=== PATIENT | female | born 1970 | race Caucasian/White ===

== ENCOUNTER → 2018-06-01 12:11 | Outpatient (CLI) | payer BC, SELFPAY ==
[2018-06-01 12:54] LABS: Hematocrit 43.1 % (36-46); Mean Corpuscular HGB Conc 34.7 % (30-36); Mean Corpuscular Hemoglobin 29.8 PG (26-34); Mean Corpuscular Volume 85.9 fL (80-100); Platelet Count 328 X10^3/uL (150-400); Red Blood Cell Count 5.02 X10^6/uL (4.0-5.2); Red Cell Distribution Width 13.1 % (11.6-14.8); White Blood Cell Count 8.6 X10^3/uL (4.5-11.0)
[2018-06-01 13:58] LABS: Neutrophils Absolute Manual 5160 /uL (3000-5900); Total Cells Counted 100
[2018-06-01 13:59] LABS: RBC Morphology Normal Morphology
[2018-06-01 14:03] LABS: HEMOLYSIS < 15 (0-50); Iron 78 ug/dL (37-170)
[2018-06-01 14:06] LABS: Alanine Aminotransferase 19 IU/L (9-52); Albumin 4.3 g/dL (3.5-5.0); Albumin Globulin Ratio 1.5 (1.0-2.8); Alkaline Phosphatase 41 U/L (38-126); Aspartate Aminotransferase 21 IU/L (14-36); BUN Creatinine Ratio 23.8 (6-22); Bilirubin Total 0.5 mg/dL (0.2-1.3); Blood Urea Nitrogen 19 mg/dL (7-17); Calcium 9.1 mg/dL (8.4-10.2); Carbon Dioxide 26 mmol/L (22-32); Chloride 105 mmol/L (98-107); Estimated Glomerular Filt Rate > 60.0 mL/min (>60); Globulin 2.8 g/dL (1.7-4.1); Glucose 91 mg/dL (70-100); HEMOLYSIS < 15 (0-50); Sodium 144 mmol/L (137-145); Total Protein 7.1 g/dL (6.3-8.2)
[2018-06-01 14:15] LABS: Percent Iron Saturation 26 % (15-50); Total Iron Binding Capacity 303 ug/dL (265-497); Transferrin 236 mg/dL (206-381)
[2018-06-01 14:28] LABS: Luteinizing Hormone 7.59 mIU/mL; Prolactin 3.2 ng/mL (3.0-18.6)
[2018-06-01 14:34] LABS: Thyroid Stimulating Hormone 0.25 uIU/mL (0.47-4.68)
[2018-06-01 14:45] LABS: Ferritin 53.7 ng/mL (6.27-137)
[2018-06-05 09:43] LABS: Testosterone Free 1.1 pg/mL (0.1-6.4); Testosterone Total 10 ng/dL (2-45)
== END ==
DX: L65.9 Nonscarring hair loss, unspecified (principal); R53.83 Other fatigue
CPT/HCPCS: 36415; 80053; 82728; 83001; 83002; 83540; 83550; 84146; 84402; 84403; 84443; 85025

== ENCOUNTER → 2018-08-22 14:00 | Outpatient (CLI) | payer BC, SELFPAY ==
--- NOTE | 2018-08-22 | DI.MG.S_ITS ---
BILATERAL DIGITAL SCREENING MAMMOGRAM 3D/2D WITH CAD WITH AUGMENTATION: 08/22/2018 CLINICAL: Baseline exam. Routine screening. No prior exams were available for comparison. The tissue of both breasts is heterogeneously dense. This may lower the sensitivity of mammography. Current study was also evaluated with a Computer Aided Detection (CAD) system. Bilateral breast implants are intact. No significant masses, calcifications, or other findings are seen in either breast. IMPRESSION: NEGATIVE There is no mammographic evidence of malignancy. A 1 year screening mammogram is recommended. This exam was interpreted at Station ID: [id number]. NOTE: For mammograms, a report in lay terms will be sent to the patient. Approximately 15% of breast malignancies will not be visualized mammographically. In the management of a palpable breast mass, a negative mammogram must not discourage biopsy of a clinically suspicious lesion. Electronically Signed By: Cholo [email or web address]:08/22/2018 16:42:14 letter sent: Normal Exam ACR BI-RADS Category 1: Negative [id number]
== END ==
DX: Z12.31 Encounter for screening mammogram for malignant neoplasm of breast (principal)
CPT/HCPCS: 77063; 77067